=== PATIENT | female | born 1960 | race Caucasian/White ===

== ENCOUNTER → 2016-07-19 | Outpatient (CLI) | payer OTHER ==
[~2016-07-19] MED LIST: GENERESS FE 0.01 CTB PO
== END ==
LOC: MC.RAD 08:00
DX: Z12.31 Encounter for screening mammogram for malignant neoplasm of breast (principal)

== ENCOUNTER → 2017-08-04 | Outpatient (CLI) | payer OTHER | LOC: MC.RAD 10:40 | DX: Z12.31 Encounter for screening mammogram for malignant neoplasm of breast (principal); Z98.890 Other specified postprocedural states ==

== ENCOUNTER → 2018-01-18 | Outpatient (CLI) | payer OTHER | LOC: COL.CARD 08:00 | DX: R00.2 Palpitations (principal) ==

== ENCOUNTER → 2018-06-28 | Outpatient (CLI) | payer OTHER | LOC: COL.RAD 09:15 | DX: S46.212A Strain of muscle, fascia and tendon of other parts of biceps, left arm, initial encounter (principal); M19.012 Primary osteoarthritis, left shoulder | CPT/HCPCS: A9585; Q9967 ==

== ENCOUNTER → 2018-10-17 | Outpatient (CLI) | payer OTHER | LOC: MC.RAD 08:00 | DX: Z12.31 Encounter for screening mammogram for malignant neoplasm of breast (principal) ==

== ENCOUNTER → 2018-12-21 | Outpatient (CLI) | payer OTHER | LOC: COL.RAD 16:14 | DX: K57.32 Diverticulitis of large intestine without perforation or abscess without bleeding (principal); J84.10 Pulmonary fibrosis, unspecified; Z90.89 Acquired absence of other organs | CPT/HCPCS: Q9967 ==

== ENCOUNTER → 2020-02-19 | Outpatient (CLI) | payer OTHER | LOC: MC.RAD 09:08 | DX: Z12.31 Encounter for screening mammogram for malignant neoplasm of breast (principal) ==

== ENCOUNTER → 2021-03-03 | Outpatient (CLI) | payer OTHER | LOC: MC.RAD 08:08 | DX: Z12.31 Encounter for screening mammogram for malignant neoplasm of breast (principal) ==